=== PATIENT | male | born 1980 | race Caucasian/White ===

== ENCOUNTER → 2017-01-19 | Outpatient (CLI) | payer OTHER ==
--- NOTE | 2017-01-19 09:14 | US ---
EXAMINATION TYPE: US abdomen complete DATE OF EXAM: 01/19/2017 7:23 AM COMPARISON: on PACS CLINICAL HISTORY: R74.8 Elevated Liver Enzymes. EXAM MEASUREMENTS: Liver Length: 17.7 cm Gallbladder Wall: 0.2 cm CHD: 0.2 cm Spleen: 13.3 cm Right Kidney: 11.6 x 5.1 x 6.1 cm Left Kidney: 12.2 x 4.8 x 5.4 cm TECHNOLOGIST IMPRESSION: Pancreas: echogenic, tail not well seen due to overlying bowel gas Liver: echogenic, upper limits enlargement Gallbladder: wnl Evidence for sonographic Jama's sign: neg CHD: wnl Spleen: Upper limits of normal. Right Kidney: wnl Left Kidney: wnl Upper IVC: seen Abd Aorta: seen The pancreas is poorly visualized. The gallbladder wall measures 1.8 mm. IMPRESSION: 1. BORDERLINE SPLENOMEGALY. 2. POOR VISUALIZATION OF THE PANCREAS.
== END | disposition home or self-care (01) ==
LOC: RADUSWWP 06:57
PROVIDERS: ATTEND Family Medicine
DX: R16.1 Splenomegaly, not elsewhere classified (principal)
CPT/HCPCS: 76700

== ENCOUNTER → 2018-07-25 | Outpatient (CLI) | payer OTHER ==
--- NOTE | 2018-07-25 07:44 | US ---
EXAMINATION TYPE: US abdomen complete DATE OF EXAM: 07/25/2018 COMPARISON: Complete abdominal ultrasound January 19, 2017 CLINICAL HISTORY: R94.5 Increased liver function. EXAM MEASUREMENTS: Liver Length: 17.8 cm Gallbladder Wall: 0.2 cm CBD: 0.3 cm Spleen: 11.7 cm Right Kidney: 12.4 x 3.8 x 4.3 cm Left Kidney: 12.5 x 4.0 x 4.4 cm Pancreas: Tail obscured by overlying bowel gas Liver: Heterogeneously hyperechoic Gallbladder: wnl Evidence for sonographic Jama's sign: No CBD: wnl Spleen: wnl Right Kidney: wnl Left Kidney: wnl Upper IVC: wnl Abd Aorta: wnl The visualized liver is heterogeneously hyperechoic. Evaluation for focal masses is suboptimal due to the heterogeneity. No intrahepatic ductal dilatation is seen. The intrahepatic portion of the IVC a nd proximal abdominal aorta are within normal limits. There is no evidence of cholelithiasis. Commo n bile duct is unremarkable. The visualized portions of the pancreas are homogenous. The spleen is unremarkable. Kidneys are symmetric and free of hydronephrosis. No renal lesions are seen. IMPRESSION: Persistent heterogeneous hyperechoic appearance of liver could reflect product of diffuse fatty infiltration or underlying hepatocellular disease. Imaging guided random biopsy for tissue jesus manuel lysis can be performed if desired. No significant change from prior US.
== END | disposition home or self-care (01) ==
LOC: RADUSWWP 06:56
PROVIDERS: ATTEND Family Medicine
DX: R93.2 Abnormal findings on diagnostic imaging of liver and biliary tract (principal); R94.5 Abnormal results of liver function studies
CPT/HCPCS: 76700

== ENCOUNTER → 2021-09-07 | Outpatient (CLI) | payer OTHER ==
[~2021-09-07] MED LIST: CASIRIVIMAB/IMDEVIMAB (EUA) 1,200 MG in SODIUM CHLORIDE 0.9% 100 ML IVPB NR; SODIUM CHLORIDE 0.9% 50 ML IVPB ONE; SODIUM CHLORIDE 0.9% 500 ML 500 ML in EMPTY BAG 1 BAG IV PRN
[2021-09-07 08:30] VITALS: BP 143/76; PULSE 92; RESP 16; TEMP 98.6
== END ==
LOC: PROCWHC3 07:07
PROVIDERS: ATTEND Family Medicine
DX: U07.1 COVID-19 (principal); E66.9 Obesity, unspecified; I11.9 Hypertensive heart disease without heart failure; Z87.891 Personal history of nicotine dependence
CPT/HCPCS: 96360; Q0243; M0243; 96361